=== PATIENT | male | born 1970 | race African-American/Black ===

== ENCOUNTER 2017-08-08 12:21 | Emergency (ER) | payer MEDICAID ==
[~2017-08-08] VITALS: Ht 180.3 cm; Wt 90.0 kg
[2017-08-08 16:37] VITALS: BP 173/89
[2017-08-08] MEDS ORDERED: ACETAMINOPHEN 500MG TABLET PO ONE (17:00)
[2017-08-08 17:11] LABS: BASOPHILS % 1.1 % (0.0-2.0); EOSINOPHILS % 2.7 % (0.0-5.0); HEMATOCRIT. 37.1 % (42.0-52.0); HEMOGLOBIN. 12.4 g/dL (14.0-18.0); LYMPHOCYTES % 24.2 % (20.0-50.0); MEAN CORPUSCULAR HEMOGLOBIN 26.7 pg (28.0-32.0); MEAN CORPUSCULAR VOLUME 79.9 fL (80.0-94.0); MEAN PLATELET VOLUME 8.9 fl (7.4-10.4); MONOCYTES % 7.7 % (2.0-8.0); NEUTROPHILS % 64.3 % (40.0-76.0); PLATELET 274 x1000/uL (130-400); RED BLOOD CELL COUNT 4.64 mill/uL (4.7-6.1)
[2017-08-08 17:14] LABS: CHLORIDE 105 mEq/L (98-107)
[2017-08-08 17:17] LABS: CARBON DIOXIDE 26 mEq/L (21-32)
[2017-08-08 17:20] LABS: INR 1.1; PROTHROMBIN TIME 11.6 sec (9.4-11.6)
[2017-08-08 18:11] LABS: CLARITY URINE CLEAR (CLEAR); COLOR URINE YELLOW (YELLOW); GLUCOSE URINE NEGATIVE (NEGATIVE); KETONES URINE NEGATIVE (NEGATIVE); LEUKOCYTE ESTERASE URINE 1+ (NEGATIVE); NITRITE URINE NEGATIVE (NEGATIVE); OCCULT BLOOD URINE NEGATIVE (NEGATIVE); PROTEIN URINE NEGATIVE (NEGATIVE); SPECIFIC GRAVITY URINE 1.016 (1.005-1.030); UROBILINOGEN URINE 0.2 E.U./dL (0.2-1.0)
== END 2017-08-08 18:40 | disposition home or self-care (01) ==
LOC: ER 13:40
DX: K92.1 Melena (principal); I10 Essential (primary) hypertension
CPT/HCPCS: 36415; 80053; 81001; 83690; 85025; 85610; 86850; 86900; 86901; 99284; Z7610